=== PATIENT | female | born 1945 | race Caucasian/White ===

== ENCOUNTER 2017-01-17 22:52 | Emergency (ER) | payer OTHER ==
[~2017-01-17] VITALS: Ht 170.2 cm; Wt 58.0 kg
[2017-01-18] MEDS ORDERED: NORCO 5/3251 TABLET PO (02:19)
[2017-01-18 02:33] VITALS: BP 159/100
== END 2017-01-18 02:37 | disposition home or self-care (01) ==
LOC: EME 22:52
DX: S51.811A Laceration without foreign body of right forearm, initial encounter (principal); S51.812A Laceration without foreign body of left forearm, initial encounter; S61.412A Laceration without foreign body of left hand, initial encounter; W10.9XXA Fall (on) (from) unspecified stairs and steps, initial encounter; E11.9 Type 2 diabetes mellitus without complications; Z79.4 Long term (current) use of insulin; Z23 Encounter for immunization
CPT/HCPCS: 73090; 73110; 99281; 99284